=== PATIENT | male | born 1945 | race Asian ===

== ENCOUNTER 2019-12-07 17:26 | Outpatient (CLI) | payer BC, OTHER ==
[~2019-12-07 17:26] MED LIST: B-1100 MG PO; BENA20TA2 PO; FURO40TA93 PO; HYDR-2748 PO; IRON SUPPLEMEN325 MG PO; MULTIVITAMI1 OR; NYST100016 TOP; OMEPRAZOLE20 M1 PO; POTASSIUM CHLO10 ME2 PO; PRED20TA27 PO; SIMV20TA2 PO; SPIR25TA66 PO; TRIA0.1C5 EX; VIAGRA100 MG PO
== END 2019-12-07 21:53 | disposition home or self-care (01) ==
LOC: LAB 17:26
DX: Z72.51 High risk heterosexual behavior (principal)
CPT/HCPCS: 36415; 80074; 86592; 87535; G0432